=== PATIENT | female | born 1970 | race Caucasian/White ===

== ENCOUNTER → 2024-01-20 12:02 | Outpatient (REF) | payer BC, SELFPAY | LOC: HWRAD 12:02 | PROVIDERS: ATTENDING PHYSICIAN Nurse Practitioner Adult Health | DX: R91.1 Solitary pulmonary nodule (principal) | CPT/HCPCS: 71250 ==

== ENCOUNTER 2024-05-30 06:47 | Emergency (ER) | payer BC, SELFPAY ==
[2024-05-30 07:02] VITALS: BP 150/93
[2024-05-30 07:22] VITALS: BMI 47.3
[2024-05-30 07:31] VITALS: BP 144/82
--- NOTE | 2024-05-30 07:32 | ED.GENMED ---
History of Present Illness
General
Chief Complaint: Abdominal Symptoms
Source: patient
Exam Limitations: none
Time Seen by Provider: 05/30/24 07:10
Nursing documentation reviewed up to this point in time: agreed with
History of Present Illness
History of Present Illness:
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 After multiple vomiting episodes, patient states that her
right-sided chest pain, which she has been dealing with ever since surgery with oxycodone, became worse. Denies fever or chills. Denies diarrhea. Denies trauma. Denies recent change in diet. Since yesterday, patient started taking 1 less dose
of oxycodone, at the recommendation of her surgeon at [facility].
Review of Systems
Review of Systems
Allergies reviewed?: Yes
All Other Systems: ROS reviewed and negative except as documented in HPI and ROS
Constitutional: Reports no symptoms; Denies fever or chills
Respiratory: Reports no symptoms
Cardiac: Reports chest pain
ABD/GI: Reports nausea and vomiting; Denies abdominal pain or diarrhea
: Reports no symptoms
Musculoskeletal: Reports no symptoms
Skin: Reports no symptoms
Neurological: Reports no symptoms
Phy Exam
Physical Exam
Physical Exam:
Physical Exam
General: mild painful distress, not acutely ill. afebrile.
Head: nc/at. eomi
Neck: supple. no meningeal signs.
Heart: s1/s2 regular rate and rhythm, no murmur. equal radial pulses.
Lungs: no acute respiratory distress. clear bilaterally.
Abdomen: normal bowel sounds. not tender. no distention.
Neuro: alert and oriented. no focal neurological deficits
Skin: no rash. well healed surgical site noted over right lateral chest wall, with minimal tenderness
Psychiatric: well kept. interactive and cooperative
Extremities: no edema. no calf tenderness.
Course
Orders/Labs/Results
Orders:
Orders
05/30/24 07:25
Ondansetron Injectable [Zofran] 4 mg .ROUTE .STK-MED ONE
05/30/24 07:28
0.9% Sodium Chloride 500 ml [Nss] 500 ml IV BOLUS
HYDROmorphone [Dilaudid] 1 mg IV NOW STA
Ondansetron Injectable [Zofran] 4 mg IV NOW STA
05/30/24 07:29
CR Chest - 2 Views Urgent
Comment:
Reason For Exam: chest pain, s/p right lobectomy
05/30/24 07:37
Complete Blood Count/No Diff Urgent
Comprehensive Metabolic Panel Urgent
Lipase Urgent
Magnesium Urgent
05/30/24 10:17
HYDROmorphone [Dilaudid] 0.5 mg .ROUTE .STK-MED ONE
Ondansetron Injectable [Zofran] 4 mg .ROUTE .STK-MED ONE
05/30/24 10:18
HYDROmorphone [Dilaudid] 0.5 mg IV NOW STA
Ondansetron Injectable [Zofran] 4 mg IV NOW STA
05/30/24 10:19
Ondansetron Injectable [Zofran] 4 mg IV NOW STA
05/30/24 10:20
HYDROmorphone [Dilaudid] 0.5 mg IV NOW STA
Abnormal Lab Results
05/30/24
07:37
BUN 19 H mg/dl
(7-17)
Glucose 109 H mg/dl
(70-99)
AST 46 H U/L
(14-36)
ALT 42 H U/L
(0-35)
05/30/24 07:37
05/30/24 07:37
Vital Signs
Initial and Last Documented VS:
Initial Vital Signs
Temp Pulse Resp BP Pulse Ox
98.7 F 94 20 150/93 98
05/30/24 07:02 05/30/24 07:02 05/30/24 07:02 05/30/24 07:02 05/30/24 07:02
Last Documented Vital Signs
Temp Pulse Resp BP Pulse Ox
98.7 F 96 22 120/55 95
05/30/24 12:24 05/30/24 12:24 05/30/24 12:24 05/30/24 12:24 05/30/24 12:24
MDM/Problems Addressed
MDM/Problems Addressed:
Patient with significant improvement symptoms after treatment. Patient remains hemodynamically stable. Patient with unremarkable workup in ED, including blood work and chest x-ray.
Patient will be discharged home in stable condition, to the care of of her family, with recommendation to follow-up with her oncologist at [facility]. Advised to return to ED with worsening symptoms.
*Critical Care Note
Total Time (30-74mins, 75-104mins- exclusive of procedures): Not Applicable
ED Attending Note
-
Portions of this chart may have been created with voice recognition software.� Occasional wrong word or��sound alike� substitutions may have occurred due to the inherent limitations of voice recognition software.
Discharge Plan
Departure
Patient Disposition: Home (Routine Discharge)
Date of Disposition: 05/30/24
Time of Disposition: 12:05
Patient with high blood pressure during this ER visit?: Yes
Discharge Problem:
Nausea & vomiting, Abdominal pain
Instructions: Nausea and Vomiting, Adult (DC), Abdominal Pain
Prescriptions:
New
ondansetron 4 mg Tablet,Disintegrating
4 mg PO TIDPRN PRN (Reason: nausea/vomiting) Qty: 8 0RF
No Action
fluoxetine 40 mg Capsule
40 mg PO DAILY
hydrochlorothiazide 25 mg Tablet
25 mg PO DAILY
rosuvastatin 20 mg Tablet
20 mg PO DAILY
armodafinil 150 mg Tablet
150 mg PO DAILY
omeprazole 20 mg Tablet,Delayed Release (Dr/Ec)
20 mg PO DAILY PRN (Reason: Heartburn)
icosapent ethyl [Vascepa] 1 gram Capsule
2 g PO BID
Rx Instructions:
with meal
Trulicity 4.5 mg/0.5 mL Pen Injector
4.5 mg SC QWEEK
Rx Instructions:
Fridays
oxycodone 5 mg tablet
5 mg PO Q8H PRN (Reason: pain) 3 Days Qty: 9 0RF
amoxicillin-pot clavulanate 875-125 mg tablet
1 tab PO BID 6 Days Qty: 12 0RF
Rx Instructions:
first dose evening of 02/13/23
Referrals:
UNKNOWN - PT DOES,NOT KNOW [Family Provider] -
Activity Restrictions/Additional Instructions:
As discussed, please follow-up with your surgeon at [facility] next week for reevaluation. Your prescription has been sent electronically to [facility] pharmacy in [place].
Interventions
Interventions:
*Risk Screen - Suicide Last Done: 05/30/24 07:23
*General Assessment Last Done: 05/30/24 07:23
*Neglect/Abuse Screening Last Done: 05/30/24 07:23
ED- Fall Risk Assessment Last Done: 05/30/24 07:24
*ED COVID-19 Vaccine History Last Done: 05/30/24 07:23
*Nursing Disposition Last Done: 05/30/24 12:24
CV-Wboida-Nmbsbuvqtw Assessment Last Done: 05/30/24 07:24
Discharge Date and Time
Discharge Date/Time: 05/30/24 12:57
Print Language: SENEGALESE
[2024-05-30] MEDS: ZOFRAN 4 MG IV ×2 (07:33→10:20)
[2024-05-30] MEDS: NSS 500 IV (07:33)
[2024-05-30] MEDS: DILAUDID 1 MG IV (07:33)
[2024-05-30 07:36] VITALS: BP 144/82
[2024-05-30 07:48] LABS: Hematocrit 38.5 % (37.0-47.0); Hemoglobin 13.6 g/dL (12.0-16.0); Mean Corp Hgb Conc. 35.3 g/dL (33.0-37.0); Mean Corpuscular Hgb 30.8 pg (27.0-31.0); Mean Corpuscular Volume 87.3 fL (81.0-99.0); Mean Platelet Volume 9.1 fL (7.4-10.4); Platelet Count 182 10^3/uL (130-400); Red Blood Cell Count 4.41 10^6/uL (4.20-5.40); Red Cell Dist. Width 12.5 % (11.5-14.5); White Blood Cell Count 6.7 10^3/uL (4.8-10.8)
[2024-05-30 08:03] LABS: ALT (SGPT) 42 U/L (0-35); AST (SGOT) 46 U/L (14-36); Albumin 4.5 g/dl (3.5-5.0); Alkaline Phosphatase 92 U/L (38-126); Blood Urea Nitrogen 19 mg/dl (7-17); Calcium 9.6 mg/dl (8.4-10.2); Carbon Dioxide 27 mmol/L (22-30); Chloride 104 mmol/L (98-107); Estimated Creatinine Clearance 97 ml/min; Glucose 109 mg/dl (70-99); Lipase 115 U/L (23-300); Magnesium 1.6 mg/dl (1.6-2.3); Potassium 4.6 mmol/L (3.5-5.1); Sodium 140 mmol/L (135-145); Total Bilirubin 0.7 mg/dl (0.2-1.3); Total Protein 7.2 g/dl (6.3-8.2); eGFR > 60.00
[2024-05-30] MEDS: DILAUDID 0.5 MG IV (10:20)
[2024-05-30 12:24] VITALS: BP 120/55
== END 2024-05-30 12:57 | disposition home or self-care (01) ==
LOC: EMR 06:47
PROVIDERS: EMERGENCY PHYSICIAN Emergency Medicine
DX: R11.2 Nausea with vomiting, unspecified (principal); R10.9 Unspecified abdominal pain; R03.0 Elevated blood-pressure reading, without diagnosis of hypertension
CPT/HCPCS: 99284; 96374; 96375; 96361; 96376 ×2; 71046; 80053; 83690; 83735; 85027